=== PATIENT | female | born 1985 | race Caucasian/White ===

== ENCOUNTER 2017-11-12 16:19 | Emergency (ER) | payer SELFPAY ==
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
[2017-11-12 16:59] LABS: PLATELET COUNT, AUTOMATED 357 K/uL (150-450)
[2017-11-12] MEDS ORDERED: NS 0.9% 50 ML VIAL 100 ML ONE (17:01)
[2017-11-12] MEDS ORDERED: IOPAMIDOL 76% 75 ML INFUS BTL 75 ML ONE (17:01)
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
[2017-11-12] MEDS ORDERED: diphenhydrAMINE 25 MG CAP PO ONE (19:20)
[2017-11-12] MEDS ORDERED: ACETAMINOPHEN 500 MG TAB PO ONE (19:20)
[2017-11-12 19:27] VITALS: BP 131/89
== END 2017-11-12 19:22 | disposition home or self-care (01) ==
LOC: ER 16:30
DX: S00.83XA Contusion of other part of head, initial encounter (principal); G93.89 Other specified disorders of brain; Y04.2XXA Assault by strike against or bumped into by another person, initial encounter
CPT/HCPCS: 70486; 70498; 81001; 84703; 85025; 99283; J7050; Q0163; Q9967; 82040; 82247; 82310; 82374; 82435; 82565; 82947; 84075; 84132; 84155; 84295; 84450; 84460; 84520